=== PATIENT | female | born 1940 | race Two or more races ===

== ENCOUNTER 2024-06-06 20:35 | Inpatient (IN) | payer MEDICAID, OTHER ==
[~2024-06-06] VITALS: Ht 157.5 cm; Wt 52.0 kg
[2024-06-06 22:30] LABS: Basophils # (auto) 0.1 10 ^3/uL (0-0.2); Basophils % (auto) 1.2 % (0.0-2.0); Eosinophils # (auto) 0 10 ^3/uL (0-0.8); Eosinophils % (auto) 0.6 % (0.0-7.0); Hematocrit 42.2 % (36.0-46.0); Hemoglobin 14.3 g/dL (12.2-16.2); Lymphocytes # (auto) 1.6 10 ^3/uL (0.4-5.4); Lymphocytes % (auto) 27.1 % (10.0-50.0); Mean Corpuscular Hemoglobin 30.4 pg (28.0-32.0); Mean Corpuscular Volume 89.5 fL (80.0-100.0); Monocytes # (auto) 0.5 10 ^3/uL (0-1.3); Monocytes % (auto) 7.7 % (0.0-12.0); Neutrophils # (auto) 3.8 10 ^3/uL (1.6-8.6); Neutrophils % (auto) 63.4 % (37.0-80.0); Nucleated Red Blood Cells % 0.1 %; Platelet Count (auto) 209 10^3/uL (140-450); Red Blood Cells 4.71 10^6/uL (4.0-5.20); Red Cell Distribution Width 13.9 % (11.8-14.3); White Blood Cell 6.1 10^3/uL (4.4-10.8)
[2024-06-06 22:44] LABS: Alanine Aminotransferase 18 U/L (7-40); Albumin 4.3 g/dL (3.2-4.8); Alkaline Phosphatase 86 U/L (46-116); Anion Gap 8 (5-15); Aspartate Aminotransferase 14 U/L (13-40); Blood Urea Nitrogen 12 mg/dL (9-23); Calcium 9.9 mg/dL (8.7-10.4); Carbon Dioxide 25 mmol/L (20-30); Chloride 108 mmol/L (98-107); Glucose 89 mg/dL (74-106); Potassium 3.8 mmol/L (3.5-5.1); Sodium 141 mmol/L (136-145); Total Protein 6.9 g/dL (5.7-8.2)
[2024-06-07] VITALS (8 sets, daily range): BP systolic 91–157; BP diastolic 45–62; PULSE 47–58; RESP 15–17; TEMP 98–98.4; O2SAT 94–100
[2024-06-07] MEDS ORDERED: NITROGLYCERIN 0.4 MG SL TAB SL PRN (02:45)
[2024-06-07] MEDS ORDERED: ACETAMINOPHEN 325 MG TAB PO PRN (02:45)
[2024-06-07] MEDS ORDERED: ONDANSETRON HCL 4 MG/2 ML VIAL IV PRN (02:45)
[2024-06-07] MEDS ORDERED: MORPHINE SULFATE INJ 2 MG/ml SYRG IV PRN (02:45)
[2024-06-07] MEDS ORDERED: HYDROcodone-ACET 5/325MG TAB PO PRN (02:45)
[2024-06-07] MEDS ORDERED: AMIO200T33 PO (09:01)
[2024-06-07 09:05] LABS: Urine Bacteria None Seen /hpf (None Seen)
[2024-06-07 09:11] LABS: Urine Blood Negative /uL (Negative); Urine Clarity Clear (Clear); Urine Color Light-Yellow (Yellow); Urine Mucus FEW (None Seen); Urine Protein, UAD Negative (Negative); Urine Specific Gravity 1.014 (1.001-1.035); Urine Urobilinogen Normal (Negative); Urine WBC 1 /hpf (0 - 5); Urine pH 5.5 (5.0-9.0)
[2024-06-07] MEDS: ENOXAPARIN SOD 40 MG/0.4 ML SYRINGE SC SCH (09:21)
[2024-06-07] MEDS: LISINOPRIL 5 MG TAB PO SCH (09:22)
[2024-06-07] MEDS: ASPirin 81 mg TAB PO SCH (09:22)
[2024-06-07] MEDS: hydrALAZINE HCL 20 MG/ML VL IV ONE (09:30)
[2024-06-07 09:32] LABS: Amphetamine Screen, Urine Neg (NEGATIVE); Barbiturate Scree,Urine Neg (NEGATIVE); Benzodiazephine Screen, Urine Neg (NEGATIVE); Cocaine Screen, Urine Neg (NEGATIVE)
[2024-06-07 09:33] LABS: Cannabinoid Screen, Urine Neg (NEGATIVE); Opiate Scree,Urine Neg (NEGATIVE); Phencyclidine Screen, Urine Neg (NEGATIVE)
[2024-06-07] MEDS: ATORVASTATIN 20 MG TAB PO SCH (10:45)
[2024-06-07] MEDS ORDERED: hydrALAZINE HCL 20 MG/ML VL IV PRN (16:00)
[2024-06-07 16:21] LABS: Basophils # (auto) 0 10 ^3/uL (0-0.2); Basophils % (auto) 0.9 % (0.0-2.0); Eosinophils # (auto) 0 10 ^3/uL (0-0.8); Eosinophils % (auto) 0.6 % (0.0-7.0); Hematocrit 40.8 % (36.0-46.0); Lymphocytes # (auto) 1.3 10 ^3/uL (0.4-5.4); Lymphocytes % (auto) 24.9 % (10.0-50.0); Mean Corpuscular Hemoglobin 30.7 pg (28.0-32.0); Mean Corpuscular Hgb Conc. 34.4 g/dL (32.0-36.0); Monocytes # (auto) 0.4 10 ^3/uL (0-1.3); Neutrophils # (auto) 3.3 10 ^3/uL (1.6-8.6); Neutrophils % (auto) 65.6 % (37.0-80.0); Nucleated Red Blood Cells % 0.1 %; Platelet Count (auto) 169 10^3/uL (140-450); Red Blood Cells 4.58 10^6/uL (4.0-5.20)
[2024-06-07 16:31] LABS: Anion Gap 7 (5-15); Carbon Dioxide 24 mmol/L (20-31); Chloride 109 mmol/L (98-107); Sodium 140 mmol/L (136-145)
[2024-06-07 16:32] LABS: Calcium 9.3 mg/dL (8.7-10.4)
[2024-06-07 16:37] LABS: BUN/Creatinine Ratio 12.8 (10.0-20.0); Blood Urea Nitrogen 12 mg/dL (9-23); Glucose 123 mg/dL (74-106); Triglycerides 49 mg/dL (< 150)
[2024-06-07 16:38] LABS: LDL Cholesterol 114 mg/dL (< 100)
[2024-06-07 16:39] LABS: Cholesterol 188 mg/dL (< 200); HDL Cholesterol 63 mg/dL (40-59)
[2024-06-07] MEDS: CYANOCOBALAMIN (B-12) 1000 MCG/1 ML VIAL SUBCUT ONE (18:09)
[2024-06-07] MEDS: CHOLECALCIFEROL (VITD3) 1,000UNIT=25mCg TAB PO ONE (18:09)
[2024-06-07] MEDS ORDERED: ATORVASTATIN 20 MG TAB PO SCH (22:00)
[2024-06-08] VITALS (10 sets, daily range): BP systolic 94–132; BP diastolic 40–65; PULSE 40–61; RESP 16–17; TEMP 97.5–98.1; O2SAT 94–99
[2024-06-08] MEDS: CHOLECALCIFEROL (VITD3) 1,000UNIT=25mCg TAB PO SCH (08:56)
[2024-06-08] MEDS: ASPirin 81 mg TAB PO SCH (08:57)
[2024-06-08 09:48] LABS: Anion Gap 7 (5-15); Carbon Dioxide 26 mmol/L (20-31); Chloride 108 mmol/L (98-107); Potassium 3.7 mmol/L (3.5-5.1); Sodium 141 mmol/L (136-145)
[2024-06-08 09:49] LABS: Calcium 9.7 mg/dL (8.7-10.4)
[2024-06-08 09:54] LABS: BUN/Creatinine Ratio 19.7 (10.0-20.0); Blood Urea Nitrogen 15 mg/dL (9-23); Glucose 123 mg/dL (74-106)
[2024-06-08] MEDS: LORazepam 2MG/ML-1ML VIAL IV ONE (18:10)
[2024-06-09] VITALS (8 sets, daily range): BP systolic 93–144; BP diastolic 41–74; PULSE 48–56; RESP 16–20; TEMP 97.5–98.2; O2SAT 96–99
[2024-06-09 08:22] LABS: Chloride 109 mmol/L (98-107); Sodium 139 mmol/L (136-145)
[2024-06-09 08:23] LABS: Anion Gap 7 (5-15); Calcium 9.7 mg/dL (8.7-10.4); Carbon Dioxide 23 mmol/L (20-31)
[2024-06-09 08:28] LABS: BUN/Creatinine Ratio 18.8 (10.0-20.0); Blood Urea Nitrogen 15 mg/dL (9-23); Glucose 89 mg/dL (74-106)
[2024-06-09] MEDS ORDERED: LISI-275 PO (12:35)
[2024-06-09] MEDS ORDERED: ATOR20TA50 PO (12:35)
[2024-06-09] MEDS ORDERED: CALC-10 PO (12:35)
[2024-06-09] MEDS ORDERED: ASPI-325 PO (12:35)
[2024-06-10 01:00] VITALS: BP 105/46; PULSE 51; RESP 16; TEMP 98; O2SAT 96
[2024-06-10 05:00] VITALS: BP 91/53; PULSE 51; RESP 16; TEMP 98.2; O2SAT 100
[2024-06-10 07:52] VITALS: PULSE 62; RESP 18; O2SAT 98
[2024-06-10 08:00] VITALS: PULSE 49
[2024-06-10 08:40] LABS: Anion Gap 7 (5-15); Carbon Dioxide 27 mmol/L (20-31); Chloride 108 mmol/L (98-107); Potassium 4.3 mmol/L (3.5-5.1); Sodium 142 mmol/L (136-145)
[2024-06-10 08:41] LABS: Calcium 9.8 mg/dL (8.7-10.4)
[2024-06-10 08:46] LABS: BUN/Creatinine Ratio 24.7 (10.0-20.0); Blood Urea Nitrogen 20 mg/dL (9-23); Glucose 89 mg/dL (74-106)
[2024-06-10 09:00] VITALS: BP 143/50; PULSE 50; RESP 18; TEMP 97.5; O2SAT 98
[2024-06-10 13:00] VITALS: BP 99/61; PULSE 57; RESP 20; TEMP 98.3; O2SAT 97
== END 2024-06-10 17:00 | disposition home or self-care (01) | DRG 204 ==
LOC: ER 20:35 → TELE 06-07 02:50 → TELE-CENTR 06-07 08:23
PROVIDERS: ADMIT Internal Medicine; ATTEND Internal Medicine
DX: I95.1 Orthostatic hypotension (principal); I21.A1 Myocardial infarction type 2; I16.9 Hypertensive crisis, unspecified; R00.1 Bradycardia, unspecified; I10 Essential (primary) hypertension; E53.8 Deficiency of other specified B group vitamins; E55.9 Vitamin D deficiency, unspecified; E78.5 Hyperlipidemia, unspecified; I35.1 Nonrheumatic aortic (valve) insufficiency; Z90.710 Acquired absence of both cervix and uterus; Z79.82 Long term (current) use of aspirin; Z79.899 Other long term (current) drug therapy; Z59.7 Insufficient social insurance and welfare support; H53.149 Visual discomfort, unspecified; T46.2X5A Adverse effect of other antidysrhythmic drugs, initial encounter
CPT/HCPCS: 36415; 70450; 70551; 71045; 80048; 80053; 80061; 80307; 81001; 82306; 82533; 82607; 82962; 83036; 83880; 84443; 84484; 85025; 93005; 93306; 93886; G0378